=== PATIENT | male | born 1950 | race Caucasian/White ===

== ENCOUNTER 2020-04-20 12:27 | Inpatient (IN) | payer OTHER ==
[2020-04-20] MEDS ORDERED: SODIUM CHLORIDE 2,381 ML IV ONE (13:17)
[2020-04-20] MEDS ORDERED: ACETAMINOPHEN 325 MG TABLET (FP) PO ONE (13:19)
[2020-04-20] MEDS ORDERED: DEXAMETHASONE SOD PHOSPHATE 10 MG/1 ML VIAL IVPUSH ONE (13:19)
[2020-04-20] MEDS ORDERED: ACETAMINOPHEN 325 MG TABLET (FP) ONE (14:15)
[2020-04-20] MEDS ORDERED: DEXAMETHASONE SOD PHOSPHATE 4 MG/1 ML VIAL ONE (14:15)
[2020-04-20 14:43] LABS: BASO % 0.1 % (0-2.0); EOS % 0.1 % (0-4.5); HEMATOCRIT 40.9 % (35.4-49); HEMOGLOBIN 13.5 GM/dL (11.7-16.9); LYMPH % 5.9 % (8-40); MCH 27.2 pg (25.7-33.7); MCHC 32.9 g/dl (32.0-35.9); MEAN CELL VOLUME 82.7 fl (80-96); MEAN PLT VOLUME 9.5 fl (7.5-11.1); MONO % 12.7 % (3.8-10.2); NEUT % 81.2 % (42.8-82.8); PLATELET COUNT 201 K/MM3 (134-434); RBC 4.94 M/mm3 (4.00-5.60); RDW 13.6 % (11.9-15.9); WHITE BLOOD COUNT 5.8 K/mm3 (4.0-10.0)
[2020-04-20 14:49] LABS: VENOUS BASE EXCESS -0.1 mmol/L (-2-2); VENOUS O2 SATURATION 96.8 % (70-80); VENOUS PCO2 35.7 mmHg (38-52); VENOUS PH 7.438 (7.310-7.410)
[2020-04-20 14:50] LABS: INR 1.1 (0.83-1.09); PROTHROMBIN TIME (PATIENT) 13.5 SEC (9.7-13.0)
[2020-04-20 14:52] LABS: ACTIVATED PTT 29.5 SECONDS (25.2-36.5)
[2020-04-20 15:06] LABS: CHLORIDE 101 mmol/L (98-107); POTASSIUM 4.8 mmol/L (3.5-5.1); SODIUM 133 mmol/L (136-145)
[2020-04-20 15:08] LABS: ALBUMIN 2.8 g/dl (3.4-5.0); ANION GAP 8 MMOL/L (8-16); CALCIUM 8.2 mg/dL (8.5-10.1); CO2 24 mmol/L (21-32); GLUCOSE,RANDOM 117 mg/dL (74-106)
[2020-04-20 15:11] LABS: SGOT/AST 174 U/L (15-37); SGPT/ALT 198 U/L (13-61)
[2020-04-20 15:12] LABS: CREATININE 0.8 mg/dL (0.55-1.3)
[2020-04-20 15:14] LABS: BILIRUBIN,TOTAL 1.4 mg/dL (0.2-1)
[2020-04-20 15:15] LABS: ALK PHOS 215 U/L (45-117)
[2020-04-20 15:16] LABS: LDH 569 U/L (87-246)
[2020-04-20] MEDS ORDERED: ALBUTEROL SO4 2.5/IPRATROPIUM 0.5 INH SOL 3 ML VIAL.NEB. NEB PRN (16:44)
[2020-04-20] MEDS: PANTOPRAZOLE 40 MG TABLET PO SCH (17:15)
[2020-04-20] MEDS: ENOXAPARIN NA (PORCINE) 40 MG/0.4 ML DISP.SYRIN SQ SCH (17:15)
[2020-04-20 17:33] LABS: URINE APPEARANCE CLEAR; URINE BILIRUBIN NEGATIVE (NEGATIVE); URINE COLOR YELLOW; URINE GLUCOSE (UA) NEGATIVE (NEGATIVE); URINE KETONE NEGATIVE (NEGATIVE); URINE LEUK ESTERASE NEGATIVE (NEGATIVE); URINE NITRITE NEGATIVE (NEGATIVE); URINE PROTEIN TRACE (NEGATIVE); URINE UROBILINOGEN 4.0 E.U/dl mg/dL (0.2-1.0)
[2020-04-20] MEDS ORDERED: ALBUTEROL SO4 HFA INHALER IH PRN (17:43)
[2020-04-20] MEDS: ATORVASTATIN CA 10 MG TABLET (FP) PO SCH (22:45)
[2020-04-21 02:53] VITALS: BMI 29.1
[2020-04-21 09:01] LABS: BASO % 0.1 % (0-2.0); HEMATOCRIT 38.4 % (35.4-49); HEMOGLOBIN 12.8 GM/dL (11.7-16.9); LYMPH % 13.7 % (8-40); MCH 27.3 pg (25.7-33.7); MCHC 33.3 g/dl (32.0-35.9); MONO % 18.6 % (3.8-10.2); NEUT % 67.6 % (42.8-82.8); PLATELET COUNT 203 K/MM3 (134-434); RBC 4.68 M/mm3 (4.00-5.60); WHITE BLOOD COUNT 3.7 K/mm3 (4.0-10.0)
[2020-04-21] MEDS: ENOXAPARIN NA (PORCINE) 40 MG/0.4 ML DISP.SYRIN SQ SCH (09:05)
[2020-04-21] MEDS: PANTOPRAZOLE 40 MG TABLET PO SCH (09:06)
[2020-04-21 09:18] LABS: POTASSIUM 4.2 mmol/L (3.5-5.1)
[2020-04-21 09:38] LABS: ALBUMIN 2.5 g/dl (3.4-5.0); CALCIUM 8.4 mg/dL (8.5-10.1)
[2020-04-21 09:39] LABS: BLOOD UREA NITROGEN 15.4 mg/dL (7-18)
[2020-04-21 09:41] LABS: CREATININE 0.6 mg/dL (0.55-1.3)
[2020-04-21 09:44] LABS: BILIRUBIN,TOTAL 0.8 mg/dL (0.2-1); TOT PROT 6.3 g/dl (6.4-8.2)
[2020-04-21] MEDS ORDERED: REMDESIVIR 200 MG in SODIUM CHLORIDE 210 ML IVPB ONE (11:00)
[2020-04-21] MEDS: DEXAMETHASONE SOD PHOSPHATE 10 MG/1 ML VIAL IVPB SCH (11:34)
[2020-04-21] MEDS: ATORVASTATIN CA 10 MG TABLET (FP) PO SCH (22:07)
[2020-04-22 09:41] LABS: BASO % 0.1 % (0-2.0); HEMATOCRIT 37.3 % (35.4-49); HEMOGLOBIN 12.4 GM/dL (11.7-16.9); LYMPH % 7.8 % (8-40); MCH 27.4 pg (25.7-33.7); MCHC 33.3 g/dl (32.0-35.9); MEAN CELL VOLUME 82.2 fl (80-96); MEAN PLT VOLUME 9.6 fl (7.5-11.1); MONO % 8.8 % (3.8-10.2); NEUT % 83.3 % (42.8-82.8); PLATELET COUNT 226 K/MM3 (134-434); RBC 4.54 M/mm3 (4.00-5.60); RDW 13.7 % (11.9-15.9)
[2020-04-22 09:57] LABS: POTASSIUM 4.3 mmol/L (3.5-5.1)
[2020-04-22 10:04] LABS: ALBUMIN 2.5 g/dl (3.4-5.0); BLOOD UREA NITROGEN 21.2 mg/dL (7-18); CALCIUM 8.4 mg/dL (8.5-10.1)
[2020-04-22 10:07] LABS: CREATININE 0.7 mg/dL (0.55-1.3)
[2020-04-22 10:08] LABS: TOT PROT 6.3 g/dl (6.4-8.2)
[2020-04-22 10:09] LABS: BILIRUBIN,TOTAL 0.5 mg/dL (0.2-1)
[2020-04-22] MEDS: PANTOPRAZOLE 40 MG TABLET PO SCH (10:56)
[2020-04-22] MEDS: ENOXAPARIN NA (PORCINE) 40 MG/0.4 ML DISP.SYRIN SQ SCH (10:56)
[2020-04-22] MEDS: REMDESIVIR 100 MG in SODIUM CHLORIDE 230 ML IVPB SCH (10:56)
[2020-04-22] MEDS: DEXAMETHASONE SOD PHOSPHATE 10 MG/1 ML VIAL IVPB SCH (10:56)
[2020-04-22] MEDS: ATORVASTATIN CA 10 MG TABLET (FP) PO SCH (21:57)
[2020-04-23 10:28] LABS: BASO % 0.2 % (0-2.0); EOS % 0.1 % (0-4.5); HEMOGLOBIN 13.1 GM/dL (11.7-16.9); LYMPH % 12.7 % (8-40); MCH 27.1 pg (25.7-33.7); MCHC 32.6 g/dl (32.0-35.9); MEAN PLT VOLUME 9.3 fl (7.5-11.1); MONO % 9.6 % (3.8-10.2); NEUT % 77.4 % (42.8-82.8); PLATELET COUNT 274 K/MM3 (134-434); RBC 4.82 M/mm3 (4.00-5.60); RDW 13.8 % (11.9-15.9); WHITE BLOOD COUNT 11.1 K/mm3 (4.0-10.0)
[2020-04-23 10:49] LABS: POTASSIUM 4.1 mmol/L (3.5-5.1)
[2020-04-23 11:03] LABS: CALCIUM 8.7 mg/dL (8.5-10.1)
[2020-04-23 11:04] LABS: ALBUMIN 2.7 g/dl (3.4-5.0); BLOOD UREA NITROGEN 22.1 mg/dL (7-18)
[2020-04-23 11:05] LABS: BILIRUBIN,TOTAL 0.6 mg/dL (0.2-1); TOT PROT 6.5 g/dl (6.4-8.2)
[2020-04-23 11:08] LABS: CREATININE 0.8 mg/dL (0.55-1.3)
[2020-04-23] MEDS: DEXAMETHASONE SOD PHOSPHATE 10 MG/1 ML VIAL IVPB SCH (11:26)
[2020-04-23] MEDS: ENOXAPARIN NA (PORCINE) 40 MG/0.4 ML DISP.SYRIN SQ SCH (11:26)
[2020-04-23] MEDS: PANTOPRAZOLE 40 MG TABLET PO SCH (11:27)
[2020-04-23] MEDS: REMDESIVIR 100 MG in SODIUM CHLORIDE 230 ML IVPB SCH (11:27)
[2020-04-23] MEDS: ATORVASTATIN CA 10 MG TABLET (FP) PO SCH (21:52)
[2020-04-24 10:00] LABS: BASO % 0.2 % (0-2.0); EOS % 0.1 % (0-4.5); HEMATOCRIT 39.5 % (35.4-49); HEMOGLOBIN 13.1 GM/dL (11.7-16.9); MCH 27.3 pg (25.7-33.7); MCHC 33.1 g/dl (32.0-35.9); MEAN CELL VOLUME 82.6 fl (80-96); MEAN PLT VOLUME 9.1 fl (7.5-11.1); MONO % 11.2 % (3.8-10.2); NEUT % 74.5 % (42.8-82.8); PLATELET COUNT 327 K/MM3 (134-434); RBC 4.78 M/mm3 (4.00-5.60); RDW 13.8 % (11.9-15.9); WHITE BLOOD COUNT 10.4 K/mm3 (4.0-10.0)
[2020-04-24] MEDS: PANTOPRAZOLE 40 MG TABLET PO SCH (10:01)
[2020-04-24] MEDS: ENOXAPARIN NA (PORCINE) 40 MG/0.4 ML DISP.SYRIN SQ SCH (10:01)
[2020-04-24] MEDS: DEXAMETHASONE SOD PHOSPHATE 10 MG/1 ML VIAL IVPB SCH (10:02)
[2020-04-24] MEDS: REMDESIVIR 100 MG in SODIUM CHLORIDE 230 ML IVPB SCH (10:13)
[2020-04-24 10:21] LABS: POTASSIUM 4.6 mmol/L (3.5-5.1)
[2020-04-24 10:25] LABS: CALCIUM 8.9 mg/dL (8.5-10.1)
[2020-04-24 10:26] LABS: ALBUMIN 2.7 g/dl (3.4-5.0); BLOOD UREA NITROGEN 19.5 mg/dL (7-18)
[2020-04-24 10:29] LABS: CREATININE 0.8 mg/dL (0.55-1.3)
[2020-04-24 10:30] LABS: BILIRUBIN,TOTAL 0.6 mg/dL (0.2-1); TOT PROT 6.7 g/dl (6.4-8.2)
[2020-04-24 20:08] LABS: HEP B CORE AB, TOT Negative (Negative)
[2020-04-24] MEDS: ATORVASTATIN CA 10 MG TABLET (FP) PO SCH (21:05)
[2020-04-25 09:13] LABS: BASO % 0.1 % (0-2.0); EOS % 0.2 % (0-4.5); HEMATOCRIT 37.1 % (35.4-49); HEMOGLOBIN 12.5 GM/dL (11.7-16.9); LYMPH % 19.2 % (8-40); MCH 27.3 pg (25.7-33.7); MCHC 33.8 g/dl (32.0-35.9); MEAN CELL VOLUME 80.9 fl (80-96); MEAN PLT VOLUME 8.8 fl (7.5-11.1); MONO % 12.5 % (3.8-10.2); PLATELET COUNT 358 K/MM3 (134-434); RBC 4.59 M/mm3 (4.00-5.60); RDW 13.9 % (11.9-15.9); WHITE BLOOD COUNT 9.3 K/mm3 (4.0-10.0)
[2020-04-25 09:29] LABS: POTASSIUM 4.3 mmol/L (3.5-5.1)
[2020-04-25 09:37] LABS: ALBUMIN 2.5 g/dl (3.4-5.0); CALCIUM 8.4 mg/dL (8.5-10.1)
[2020-04-25 09:38] LABS: BLOOD UREA NITROGEN 20.2 mg/dL (7-18)
[2020-04-25 09:41] LABS: CREATININE 0.7 mg/dL (0.55-1.3)
[2020-04-25 09:42] LABS: BILIRUBIN,TOTAL 0.7 mg/dL (0.2-1)
[2020-04-25] MEDS: ENOXAPARIN NA (PORCINE) 40 MG/0.4 ML DISP.SYRIN SQ SCH (10:15)
[2020-04-25] MEDS: REMDESIVIR 100 MG in SODIUM CHLORIDE 230 ML IVPB SCH (10:15)
[2020-04-25] MEDS: PANTOPRAZOLE 40 MG TABLET PO SCH (10:15)
[2020-04-25] MEDS: DEXAMETHASONE SOD PHOSPHATE 10 MG/1 ML VIAL IVPB SCH (10:15)
[2020-04-25] MEDS: ATORVASTATIN CA 10 MG TABLET (FP) PO SCH (21:23)
[2020-04-25 23:07] LABS: FIBROSIS SCORE. 0.58 (0.00-0.21); HCV ALPHA 2 MACRO CHART 148 mg/dL (110-276); NECRO.INFLAM ACT.SCORE 0.86 (0.00-0.17); NECROINFLAM. ACTIVITY GRADE A3-Severe activity (.)
[2020-04-26 08:42] LABS: BASO % 0.4 % (0-2.0); EOS % 0.2 % (0-4.5); HEMATOCRIT 41.5 % (35.4-49); HEMOGLOBIN 13.6 GM/dL (11.7-16.9); LYMPH % 21.4 % (8-40); MCH 27.2 pg (25.7-33.7); MCHC 32.7 g/dl (32.0-35.9); MEAN PLT VOLUME 8.9 fl (7.5-11.1); MONO % 11.9 % (3.8-10.2); NEUT % 66.1 % (42.8-82.8); PLATELET COUNT 429 K/MM3 (134-434); RDW 13.9 % (11.9-15.9); WHITE BLOOD COUNT 10.5 K/mm3 (4.0-10.0)
[2020-04-26 09:10] LABS: POTASSIUM 4.3 mmol/L (3.5-5.1)
[2020-04-26 09:13] LABS: ALBUMIN 2.9 g/dl (3.4-5.0); BLOOD UREA NITROGEN 20.2 mg/dL (7-18); CALCIUM 8.9 mg/dL (8.5-10.1)
[2020-04-26 09:16] LABS: CREATININE 0.8 mg/dL (0.55-1.3)
[2020-04-26 09:18] LABS: BILIRUBIN,TOTAL 1.1 mg/dL (0.2-1); TOT PROT 6.8 g/dl (6.4-8.2)
[2020-04-26] MEDS ORDERED: DEXAMETHASONE 4 MG TABLET (FP) PO SCH (10:00)
[2020-04-26 10:10] LABS: ANISOCYTOSIS 0; MACROCYTOSIS 0; OVALOCYTE 1+; PLATELET ESTIMATE NORMAL
[2020-04-26] MEDS ORDERED: PT OWN MED DRAWER 7, Y5N ONE (10:27)
[2020-04-26] MEDS: ENOXAPARIN NA (PORCINE) 40 MG/0.4 ML DISP.SYRIN SQ SCH (10:40)
[2020-04-26] MEDS: PANTOPRAZOLE 40 MG TABLET PO SCH (10:40)
[2020-04-26 15:03] VITALS: BP 105/59; PULSE 66; TEMP 97.7
== END 2020-04-26 15:41 | disposition home or self-care (01) | DRG 177 ==
LOC: JER 12:27 → JERBED 16:15 → J8W 20:18
PROVIDERS: ADMIT Internal Medicine; ATTEND Internal Medicine
PROC: 8E0ZXY6 Isolation (ICD-10-PCS; 2020-04-20)
PROC: XW033E5 Introduction of Remdesivir Anti-infective into Peripheral Vein, Percutaneous Approach, New Technology Group 5 (ICD-10-PCS; principal; 2020-04-21)
DX: U07.1 COVID-19 (principal); J12.82 Pneumonia due to coronavirus disease 2019; J96.01 Acute respiratory failure with hypoxia; E87.1 Hypo-osmolality and hyponatremia; E78.5 Hyperlipidemia, unspecified; N40.0 Benign prostatic hyperplasia without lower urinary tract symptoms; R05 Cough; M62.81 Muscle weakness (generalized); R50.9 Fever, unspecified; G47.33 Obstructive sleep apnea (adult) (pediatric)
CPT/HCPCS: 36415; 71045-TC-FY; 76705-TC; 80053; 81003; 82172; 82550; 82728; 82803; 82977; 83010; 83516; 83605; 83615; 83883; 84460; 84484; 85025; 85379; 85610; 85730; 86140; 86376; 86704; 86706; 86707; 86708; 86709; 86769; 86850; 86900; 86901; 87040; 87086; 87340; 87804; 93005; 93010; 94761; 99285-25; C9399; C9803; J1100; U0003